=== PATIENT | male | born 1960 | race Caucasian/White ===

== ENCOUNTER 2017-01-10 01:12 | Emergency (ER) | payer OTHER ==
[~2017-01-10] VITALS: Ht 177.8 cm; Wt 90.0 kg
--- NOTE | 2017-01-10 01:25 | PD ---
HPI Chief Complaint: psychiatric evaluation Time Seen by Provider: 01:21 Travel History International Travel<30 days: No Contact w/Intl Traveler<30days: No History of Present Illness HPI Patient comes in under a [place] by police for suicidal ideations. Patient states that 2 days ago he smoked what he thought was methamphetamines but now believes may have been bath salts secondary to not being asleep the past 2 days. Patient denies anything making symptoms better or worse, but has been trying to level out his symptoms with alcohol. Patient denies any other complaints. Denies any chest pain, shortness breath, fevers, abdominal pain, nausea or vomiting, headache, or numbness or tingling anywhere. Patient reports he had been sober for 2 months but just recently relapsed. [facility] Past Medical History Psychiatric: Yes (bipolar) Social History Alcohol Use: Yes Tobacco Use: Yes Substance Use: Yes Allergies-Medications (Allergen,Severity, Reaction): Coded Allergies: No Known Allergies (Unverified , 01/10/17) Reported Meds & Prescriptions Reported Meds & Active Scripts Active Reported Gabapentin 800 Mg Tab 900 Mg PO BID Effexor (Venlafaxine HCl) 100 Mg Tab 150 Mg PO DAILY Review of Systems Except as stated in HPI: all other systems reviewed are Neg Physical Exam Narrative GENERAL: Well-developed, well nourished, in no acute distress, and non-ill appearing. SKIN: Focused skin assessment warm and dry. HEAD: Atraumatic. Normocephalic. EYES: Pupils equal and round. EOMI. No scleral icterus. No injection or drainage. ENT: No nasal bleeding or discharge. Mucous membranes pink and moist. NECK: Trachea midline. No JVD. Supple. No nuclear rigidity. CARDIOVASCULAR: Regular rate and rhythm. No murmur appreciated. RESPIRATORY: No accessory muscle use. No respiratory distress. Clear to auscultation. Breath sounds equal bilaterally. MUSCULOSKELETAL: No obvious deformities. No clubbing. No cyanosis. No edema. Full range of motion. NEUROLOGICAL: Awake and alert. No obvious cranial nerve deficits. Motor grossly within normal limits. Normal speech. PSYCHIATRIC: Appropriate mood and affect. Data Data Last Documented VS Vital Signs Date Time Temp Pulse Resp B/P (MAP) Pulse Ox O2 Delivery O2 Flow Rate FiO2 01/10/17 03:29 101 20 108/65 (79) 99 Room Air 01/10/17 01:39 97.9 Orders Orders Complete Blood Count With Diff (01/10/17 01:22) Comprehensive Metabolic Panel (01/10/17 01:22) Psych Screen (01/10/17 01:22) Drug Screen, Random Urine (01/10/17 01:22) Alcohol (Ethanol) (01/10/17 01:22) Salicylates (Aspirin) (01/10/17 01:22) Tylenol (Acetaminophen) (01/10/17 01:22) Creatine Kinase (Cpk) (01/10/17 01:42) CKMB (01/10/17 01:30) CKMB% (01/10/17 01:30) Sodium Chlor 0.9% 1000 Ml Inj (Ns 1000 M (01/10/17 03:00) Sodium Chlor 0.9% 1000 Ml Inj (Ns 1000 M (01/10/17 03:00) Urinalysis - C+S If Indicated (01/10/17 03:08) Lorazepam Inj (Ativan Inj) (01/10/17 03:30) Creatine Kinase (Cpk) (01/10/17 03:22) Lorazepam Inj (Ativan Inj) (01/10/17 03:30) CKMB (01/10/17 04:39) CKMB% (01/10/17 04:39) Sodium Chlor 0.9% 1000 Ml Inj (Ns 1000 M (01/10/17 05:30) Sodium Chlor 0.9% 1000 Ml Inj (Ns 1000 M (01/10/17 05:30) Labs Laboratory Tests Test 01/10/17 01:30 01/10/17 02:00 01/10/17 04:39 White Blood Count 12.3 TH/MM3 Red Blood Count 4.82 MIL/MM3 Hemoglobin 15.0 GM/DL Hematocrit 43.6 % Mean Corpuscular Volume 90.4 FL Mean Corpuscular Hemoglobin 31.1 PG Mean Corpuscular Hemoglobin Concent 34.4 % Red Cell Distribution Width 13.3 % Platelet Count 211 TH/MM3 Mean Platelet Volume 8.9 FL Neutrophils (%) (Auto) 71.2 % Lymphocytes (%) (Auto) 18.0 % Monocytes (%) (Auto) 10.2 % Eosinophils (%) (Auto) 0.2 % Basophils (%) (Auto) 0.4 % Neutrophils # (Auto) 8.8 TH/MM3 Lymphocytes # (Auto) 2.2 TH/MM3 Monocytes # (Auto) 1.3 TH/MM3 Eosinophils # (Auto) 0.0 TH/MM3 Basophils # (Auto) 0.0 TH/MM3 CBC Comment DIFF FINAL Differential Comment Blood Urea Nitrogen 22 MG/DL Creatinine 1.42 MG/DL Random Glucose 98 MG/DL Total Protein 7.6 GM/DL Albumin 4.0 GM/DL Calcium Level 8.5 MG/DL Alkaline Phosphatase 58 U/L Aspartate Amino Transf (AST/SGOT) 59 U/L Alanine Aminotransferase (ALT/SGPT) 63 U/L Total Bilirubin 0.4 MG/DL Sodium Level 140 MEQ/L Potassium Level 3.8 MEQ/L Chloride Level 104 MEQ/L Carbon Dioxide Level 24.4 MEQ/L Anion Gap 12 MEQ/L Estimat Glomerular Filtration Rate 52 ML/MIN Total Creatine Kinase 1891 U/L 1669 U/L Creatine Kinase MB 20.6 NG/ML Creatine Kinase MB % 1.1 % Salicylates Level LESS THAN 1.7 MG/DL Acetaminophen Level LESS THAN 2.0 MCG/ML Ethyl Alcohol Level 145 MG/DL Urine Color YELLOW Urine Turbidity CLEAR Urine pH 5.5 Urine Specific [place] 1.017 Urine Protein NEG mg/dL Urine Glucose (UA) NEG mg/dL Urine Ketones NEG mg/dL Urine Occult Blood NEG Urine Nitrite NEG Urine Bilirubin NEG Urine Urobilinogen LESS THAN 2.0 MG/DL Urine Leukocyte Esterase NEG Urine RBC 1 /hpf Urine WBC 1 /hpf Urine Mucus FEW /lpf Microscopic Urinalysis Comment CULT NOT INDICATED Urine Opiates Screen NEG Urine Barbiturates Screen NEG Urine Amphetamines Screen POS Urine Benzodiazepines Screen NEG Urine Cocaine Screen NEG Urine Cannabinoids Screen NEG [facility] Medical Decision Making Medical Screen Exam Complete: Yes Emergency Medical Condition: Yes Differential Diagnosis Homicidal, suicidal, substance abuse, alcohol abuse, rhabdomyolysis, metabolic disturbance, nonspecific mood disorder Narrative Course Patient was seen and examined. Labs were obtained and reviewed. Patient was hydrated 2 L of IV fluid and CK was repeated showed a be trending downward. Patient was given additional 2 L of IV fluid. Discussed patient with Dr. Ortiz , who is in agreement with plan of care and disposition. Patient medically cleared for further treatment and evaluation by psych. Final disposition per psych. Diagnosis Primary Impression: Substance abuse Additional Impressions: Alcohol abuse Elevated CK Medical clearance for psychiatric admission Condition: Stable Ashlie,Albino D PA Jan 10, 2017 01:25
[2017-01-10] MEDS ORDERED: VENL100T PO (01:33)
[2017-01-10] MEDS ORDERED: GABA800T PO (01:33)
[2017-01-10 01:34] VITALS: BP 130/79; PULSE 124; TEMP 98; O2SAT 97
[2017-01-10 01:39] VITALS: PULSE 124; RESP 20; TEMP 97.9; O2SAT 97
[2017-01-10 02:00] LABS: AUTOMATED NEUTROPHIL # 8.8 TH/MM3 (1.8-7.7); BASOPHIL % 0.4 % (0.0-2.0); EOSINOPHIL % 0.2 % (0.0-4.0); HEMATOCRIT 43.6 % (39.0-51.0); HEMO FLAGS DIFF FINAL; LYMPHOCYTE # 2.2 TH/MM3 (1.0-4.8); MEAN CELL VOLUME 90.4 FL (80.0-100.0); MEAN CORPUSCULAR HEMOGLOBIN 31.1 PG (27.0-34.0); MEAN CORPUSCULAR HGB CONC 34.4 % (32.0-36.0); MONO % 10.2 % (0.0-8.0); NEUT % 71.2 % (16.0-70.0); PLATELET COUNT 211 TH/MM3 (150-450); RED BLOOD COUNT 4.82 MIL/MM3 (4.50-5.90); RED CELL DISTRIBUTION WIDTH 13.3 % (11.6-17.2); WHITE BLOOD COUNT 12.3 TH/MM3 (4.0-11.0)
[2017-01-10 02:58] LABS: ALT (GPT) 63 U/L (12-78); ANION GAP 12 MEQ/L (5-15); AST (GOT) 59 U/L (15-37); BICARBONATE 24.4 MEQ/L (21.0-32.0); BLOOD UREA NITROGEN 22 MG/DL (7-18); CHLORIDE 104 MEQ/L (98-107); CKMB 20.6 NG/ML (0.5-3.6); GLOMERULAR FILTRATION RATE 52 ML/MIN (>89); POTASSIUM 3.8 MEQ/L (3.5-5.1); SODIUM (NA) 140 MEQ/L (136-145)
[2017-01-10 03:00] LABS: ALKALINE PHOSPHATASE 58 U/L (45-117); TOTAL BILIRUBIN ADULT 0.4 MG/DL (0.2-1.0)
[2017-01-10] MEDS ORDERED: SODIUM CHLOR 0.9% 1000 ML INJ 1,000 ML IV ONE ×4 (03:00→05:30)
[2017-01-10 03:01] LABS: ACETAMINOPHEN LESS THAN 2.0 MCG/ML (10.0-30.0); ALCOHOL 145 MG/DL (0-5)
[2017-01-10 03:29] VITALS: BP 108/65; PULSE 101; RESP 20; O2SAT 99
[2017-01-10] MEDS ORDERED: LORazepam 2 MG/ML VIAL IV PUSH ONE ×2 (03:30)
[2017-01-10 03:34] LABS: BLOOD, URINE NEG (NEG); COMMENT (UR) CULT NOT INDICATED; CULTURE IF INDICATED CULT NOT INDICATED; GLUCOSE,URINE NEG (NEG); KETONE, URINE NEG (NEG); MUCUS URINE FEW /lpf (OCC); NITRITE,URINE NEG (NEG); PH, URINE 5.5 (5.0-8.5); URINE COLOR YELLOW (YELLW/STRAW)
[2017-01-10 05:35] LABS: CKMB 17.9 NG/ML (0.5-3.6)
[2017-01-10 08:29] VITALS: BP 115/68; PULSE 91; RESP 22; O2SAT 97
--- NOTE | 2017-01-10 10:17 | PD ---
Physical Exam Date Seen by Provider: Jan 10, 2017 Narrative 56-year-old male presents to emergency department as a Mariano act. During the visit in the emergency department patient denies having pain. He will receive Tylenol for pain. Will avoid NSAIDs or any other renal cleared medication because of his recent rhabdo. Dr Caldwell lifted the Mariano act. Patient requested tramadol for his continued pain while in the ED. I spoke with Dr. Caldwell and he stated that pt was rather manipulative and has a history of returning to the ED for similar complaints. Patient denies suicidal or homicidal ideations at this point and is discharged for outpatient follow up. Data Data Last Documented VS Orders Orders Complete Blood Count With Diff (01/10/17 01:22) Comprehensive Metabolic Panel (01/10/17:22) Psych Screen (01/10/17:22) Drug Screen, Random Urine (01/10/17:22) Alcohol (Ethanol) (01/10/17 01:22) Salicylates (Aspirin) (01/10/17 01:22) Tylenol (Acetaminophen) (01/10/17 01:22) Creatine Kinase (Cpk) (01/10/17 01:42) CKMB (01/10/17 01:30) CKMB% (01/10/17 01:30) Sodium Chlor 0.9% 1000 Ml Inj (Ns 1000 M (01/10/17 03:00) Sodium Chlor 0.9% 1000 Ml Inj (Ns 1000 M (01/10/17 03:00) Urinalysis - C+S If Indicated (01/10/17 03:08) Lorazepam Inj (Ativan Inj) (01/10/17 03:30) Creatine Kinase (Cpk) (01/10/17 03:22) Lorazepam Inj (Ativan Inj) (01/10/17 03:30) CKMB (01/10/17 04:39) CKMB% (01/10/17 04:39) Sodium Chlor 0.9% 1000 Ml Inj (Ns 1000 M (01/10/17 05:30) Sodium Chlor 0.9% 1000 Ml Inj (Ns 1000 M (01/10/17 05:30) Diet Regular Basic (01/10/17 Breakfast) Acetaminophen (Tylenol) (01/10/17 10:30) Tramadol (Ultram) (01/10/17 12:45) Ed Discharge Order (01/10/17 12:44) Labs Laboratory Tests Test 01/10/17 01:30 01/10/17 02:00 01/10/17 04:39 White Blood Count 12.3 TH/MM3 Red Blood Count 4.82 MIL/MM3 Hemoglobin 15.0 GM/DL Hematocrit 43.6 % Mean Corpuscular Volume 90.4 FL Mean Corpuscular Hemoglobin 31.1 PG Mean Corpuscular Hemoglobin Concent 34.4 % Red Cell Distribution Width 13.3 % Platelet Count 211 TH/MM3 Mean Platelet Volume 8.9 FL Neutrophils (%) (Auto) 71.2 % Lymphocytes (%) (Auto) 18.0 % Monocytes (%) (Auto) 10.2 % Eosinophils (%) (Auto) 0.2 % Basophils (%) (Auto) 0.4 % Neutrophils # (Auto) 8.8 TH/MM3 Lymphocytes # (Auto) 2.2 TH/MM3 Monocytes # (Auto) 1.3 TH/MM3 Eosinophils # (Auto) 0.0 TH/MM3 Basophils # (Auto) 0.0 TH/MM3 CBC Comment DIFF FINAL Differential Comment Blood Urea Nitrogen 22 MG/DL Creatinine 1.42 MG/DL Random Glucose 98 MG/DL Total Protein 7.6 GM/DL Albumin 4.0 GM/DL Calcium Level 8.5 MG/DL Alkaline Phosphatase 58 U/L Aspartate Amino Transf (AST/SGOT) 59 U/L Alanine Aminotransferase (ALT/SGPT) 63 U/L Total Bilirubin 0.4 MG/DL Sodium Level 140 MEQ/L Potassium Level 3.8 MEQ/L Chloride Level 104 MEQ/L Carbon Dioxide Level 24.4 MEQ/L Anion Gap 12 MEQ/L Estimat Glomerular Filtration Rate 52 ML/MIN Total Creatine Kinase 1891 U/L 1669 U/L Creatine Kinase MB 20.6 NG/ML 17.9 NG/ML Creatine Kinase MB % 1.1 % 1.1 % Salicylates Level LESS THAN 1.7 MG/DL Acetaminophen Level LESS THAN 2.0 MCG/ML Ethyl Alcohol Level 145 MG/DL Urine Color YELLOW Urine Turbidity CLEAR Urine pH 5.5 Urine Specific [place] 1.017 Urine Protein NEG mg/dL Urine Glucose (UA) NEG mg/dL Urine Ketones NEG mg/dL Urine Occult Blood NEG Urine Nitrite NEG Urine Bilirubin NEG Urine Urobilinogen LESS THAN 2.0 MG/DL Urine Leukocyte Esterase NEG Urine RBC 1 /hpf Urine WBC 1 /hpf Urine Mucus FEW /lpf Microscopic Urinalysis Comment CULT NOT INDICATED Urine Opiates Screen NEG Urine Barbiturates Screen NEG Urine Amphetamines Screen POS Urine Benzodiazepines Screen NEG Urine Cocaine Screen NEG Urine Cannabinoids Screen NEG MDM Supervised Visit with AIME: Yes Diagnosis Primary Impression: Substance abuse Additional Impressions: Alcohol abuse Medical clearance for psychiatric admission Elevated CK Condition: Stable Anaya Lanza Jan 10, 2017 10:17
[2017-01-10] MEDS ORDERED: ACETAMINOPHEN 500 MG CPLT PO ONE (10:30)
[2017-01-10] MEDS ORDERED: traMADol HCL 50 MG TAB PO ONE (12:45)
--- NOTE | 2017-01-10 12:54 | PD ---
History of Present Illness Chief Complaint: Psychiatric Symptoms Time Seen by Provider: 12:30 Travel History International Travel<30 Days: No Contact w/Intl Traveler<30days: No Known affected area: No Legal Status Legal Status: [place] Act History of Present Illness: 56-year-old self-admitted alcoholic and drug addict, [place]at acted for suicidal ideation. Patient reports he has no family relationships and is on his way to [place]. 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 He also admits to "falling off the wagon" recently. His toxicology screen is noted to be positive for both alcohol and amphetamines. After meeting with him and attempting to obtain a prescription of tramadol from the physician assistant professor of art, the patient wanted to sit with this physician and have a psychotherapy session. He states he has a lot he wants to talk about. This physician indicated this was the emergency department and psychotherapy was not part of the evaluation and treatment process. Patient then asked if he could stay in the emergency department for another day rather than obtain a prescription for tramadol and continue his travels to [place]. When informed this was not a possibility, the patient then began claiming once again that he was suicidal. This physician finds the patient to be a drug addict and extremely manipulative. Although the patient may act out to harm himself, this is a risk that is both unavoidable and unpredictable. However, it remains counter therapeutic to get into the patient's manipulations. He can and should be referred to [facility] for evaluation and treatment of his drug abuse problem. PFSH Past Medical History Bipolar Disorder: Yes Diminished Hearing: No Hepatitis: Yes (C) Psychiatric: Yes (bipolar) Tetanus Vaccination: Unknown Influenza Vaccination: No Psychiatric History Psychiatric History Hx Psychiatric Treatment: Patient's obvious problem is drug and alcohol abuse. This physician sees no significant clinically objective evidence of another major mental disorder. History of Inpatient Treatment: No Guns or firearms in home: No Social History Hx Alcohol Use: Yes Hx Tobacco Use: Yes Hx Substance Use: Yes Hx of Substance Use Treatment: Yes Allergies-Medications (Allergen,Severity, Reaction): Coded Allergies: No Known Allergies (Unverified , 01/10/17) Reported Meds & Prescriptions Reported Meds & Active Scripts Active Reported Gabapentin 800 Mg Tab 900 Mg PO BID Effexor (Venlafaxine HCl) 100 Mg Tab 150 Mg PO DAILY Review of Systems Musculoskeletal: COMPLAINS OF: Joint pain, Muscle aches Except as stated in HPI: all other systems reviewed are Neg Mental Status Examination Appearance: Disheveled Consciousness: Alert Orientation: x4 Motor Activity: Normal gait Speech: Unremarkable Language: Adequate Fund of Knowledge: Adequate Attention and Concentration: Adequate Memory: Unremarkable Mood: Other Affect: Other Thought Process & Associations: Intact Thought Content: Appropriate Hallucination Type: None Delusion Type: None Suicidal Ideation: Yes (patient remains highly manipulative and will assume any "symptoms" he feels are likely to get him what he wants.) Suicidal Plan: No Suicidal Intention: No Homicidal Ideation: No Homicidal Plan: No Homicidal Intention: No Insight: Adequate Judgment: Adequate MDM Medical Decision Making Medical Record Reviewed: Yes Assessment/Plan Patient interviewed at bedside. Vital record reviewed. Case discussed with nurse Maricel and physician's assistant professor of art Anaya. Mariano act being lifted and this physician feels strongly the patient should not be admitted for psychiatric reasons as this is counter therapeutic given his drug abuse and manipulative behavior. Referral to [facility] appropriate but patient is reportedly passing through [facility] on his way to [place] and is not felt to truly want drug treatment. (Patient requesting tramadol.) Orders Orders Complete Blood Count With Diff (01/10/17 01:22) Comprehensive Metabolic Panel (01/10/17 01:22) Psych Screen (01/10/17 01:22) Drug Screen, Random Urine (01/10/17 01:22) Alcohol (Ethanol) (01/10/17 01:22) Salicylates (Aspirin) (01/10/17 01:22) Tylenol (Acetaminophen) (01/10/17 01:22) Creatine Kinase (Cpk) (01/10/17 01:42) CKMB (01/10/17 01:30) CKMB% (01/10/17 01:30) Sodium Chlor 0.9% 1000 Ml Inj (Ns 1000 M (01/10/17 03:00) Sodium Chlor 0.9% 1000 Ml Inj (Ns 1000 M (01/10/17 03:00) Urinalysis - C+S If Indicated (01/10/17 03:08) Lorazepam Inj (Ativan Inj) (01/10/17 03:30) Creatine Kinase (Cpk) (01/10/17 03:22) Lorazepam Inj (Ativan Inj) (01/10/17 03:30) CKMB (01/10/17 04:39) CKMB% (01/10/17 04:39) Sodium Chlor 0.9% 1000 Ml Inj (Ns 1000 M (01/10/17 05:30) Sodium Chlor 0.9% 1000 Ml Inj (Ns 1000 M (01/10/17 05:30) Diet Regular Basic (01/10/17 Breakfast) Acetaminophen (Tylenol) (01/10/17 10:30) Results Vital Signs Date Time Temp Pulse Resp B/P (MAP) Pulse Ox O2 Delivery O2 Flow Rate FiO2 01/10/17 08:29 91 22 115/68 (84) 97 Room Air 01/10/17 03:29 101 20 108/65 (79) 99 Room Air 01/10/17 01:39 97.9 124 20 97 01/10/17 01:39 124 20 01/10/17 01:34 98.0 124 130/79 (96) 97 Laboratory Tests Test 01/10/17 01:30 01/10/17 02:00 01/10/17 04:39 White Blood Count 12.3 Red Blood Count 4.82 Hemoglobin 15.0 Hematocrit 43.6 Mean Corpuscular Volume 90.4 Mean Corpuscular Hemoglobin 31.1 Mean Corpuscular Hemoglobin Concent 34.4 Red Cell Distribution Width 13.3 Platelet Count 211 Mean Platelet Volume 8.9 Neutrophils (%) (Auto) 71.2 Lymphocytes (%) (Auto) 18.0 Monocytes (%) (Auto) 10.2 Eosinophils (%) (Auto) 0.2 Basophils (%) (Auto) 0.4 Neutrophils # (Auto) 8.8 Lymphocytes # (Auto) 2.2 Monocytes # (Auto) 1.3 Eosinophils # (Auto) 0.0 Basophils # (Auto) 0.0 CBC Comment DIFF FINAL Differential Comment Blood Urea Nitrogen 22 Creatinine 1.42 Random Glucose 98 Total Protein 7.6 Albumin 4.0 Calcium Level 8.5 Alkaline Phosphatase 58 Aspartate Amino Transf (AST/SGOT) 59 Alanine Aminotransferase (ALT/SGPT) 63 Total Bilirubin 0.4 Sodium Level 140 Potassium Level 3.8 Chloride Level 104 Carbon Dioxide Level 24.4 Anion Gap 12 Estimat Glomerular Filtration Rate 52 Total Creatine Kinase 1891 1669 Creatine Kinase MB 20.6 17.9 Creatine Kinase MB % 1.1 1.1 Salicylates Level LESS THAN 1.7 Acetaminophen Level LESS THAN 2.0 Ethyl Alcohol Level 145 Urine Color YELLOW Urine Turbidity CLEAR Urine pH 5.5 Urine Specific [place] 1.017 Urine Protein NEG Urine Glucose (UA) NEG Urine Ketones NEG Urine Occult Blood NEG Urine Nitrite NEG Urine Bilirubin NEG Urine Urobilinogen LESS THAN 2.0 Urine Leukocyte Esterase NEG Urine RBC 1 Urine WBC 1 Urine Mucus FEW Microscopic Urinalysis Comment CULT NOT INDICATED Urine Opiates Screen NEG Urine Barbiturates Screen NEG Urine Amphetamines Screen POS Urine Benzodiazepines Screen NEG Urine Cocaine Screen NEG Urine Cannabinoids Screen NEG Diagnosis Primary Impression: Substance abuse Additional Impression: Alcohol abuse Condition: Stable Problem Qualifiers Ajay Caldwell MD Jan 10, 2017 12:54
== END 2017-01-10 13:14 | disposition home or self-care (01) ==
LOC: NEPD 01:12
DX: F10.10 Alcohol abuse, uncomplicated (principal); F31.9 Bipolar disorder, unspecified; F19.10 Other psychoactive substance abuse, uncomplicated; Z79.899 Other long term (current) drug therapy; Z72.0 Tobacco use; Z86.19 Personal history of other infectious and parasitic diseases
CPT/HCPCS: 80053; 80307; 81001; 82550; 82552; 85025; 96361; 96374; 99285; J2060; J7030